=== PATIENT | female | born 1970 | race Caucasian/White ===

== ENCOUNTER 2018-11-08 00:57 | Emergency (ER) | payer OTHER, SELFPAY ==
[2018-11-08 01:00] VITALS: BP 151/97; PULSE 78; RESP 16; TEMP 36.1; O2SAT 100
[2018-11-08] MEDS: Cyclobenzaprine 10 MG TAB PO (01:14)
--- NOTE | 2018-11-08 01:16 | ED.GENADUL_ITS ---
Discharge Plan Disposition Patient Disposition: HOME Condition: Stable Discharge Details Chief Complaint: Nk/Back Pain Clinical Impression: Lumbar back pain Primary Care Provider: Yasmin Guerra ED Provider: Tyler Serrano Home Meds and New Rx's Prescriptions: New cyclobenzaprine 10 mg tablet 10 mg PO TID PRN (Reason: muscle spasm) Qty: 20 RF: 0 No Action albuterol sulfate [ProAir HFA] 8.5 GM HFA aerosol inhaler 2 puff Inhalation Q4H PRN Qty: 1 RF: 2 Discharge Instructions Instructions: Back Pain (ED) Additional Instructions: you can take 1000mg tylenol and 600mg ibuprofen every 6 hours for pain do not drink alcohol or drive if you take the flexeril (cyclobenzaprine) follow up with your primary care provider within 1-2 weeks epsecially if pain continues return to the emergency department for high fevers, difficulty urinating or abdominal pain or weakness Stand Alone Forms: Physical Therapy Referral Medical Decision Making 48 yo female who states she has a history of having back issues but no prior back surgeries comes in with chief complaint of 3 days of mid to lower back 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 She denies any trauma and denies any fevers, worse pain in the morning or unexplained weight loss. She denies drug use or smoking or alcohol use. she localizes the pain throughout the lumbar region without palpable or visible defects. Does have pain with flexion at lumbar spine, no saddle anesthesia or weaknessin the legs with intact distal sensation and pulses. no findings on exam to suggest cauda equina or findings on hx to suggest sea so do not feel emergent mri indicated and given lack of trauma doubt fx and no systemic symptoms to suggest cancer so do not feel xrays or ct indicated. i suspect musclespasm or other musculoskeletal injury to the lower back, will start muscle relaxers and advised f/u with pcp and return precautions given. Differential Diagnosis back spasm, lumbar strain, disc herniation HPI General Mode of arrival: ambulatory . Date/Time Provider Initiated Documentation: 11/08/18 01:02 . Limitations to Documentation: no limitations . Information obtained by: patient . History of Present Illness 48 year old F presents to the emergency department with the chief complaint of back pain, described as moderate, Quality is described as aching, and is localized to the back. Patient started experiencing this day(s) (3) and it has been constant. No relieving factors improve symptom(s), No exacerbating factors reported . Patient notes no other symptoms.. Patient did receive the following treatments prior to arrival, none Related Data Home Medications Medication Instructions Recorded Confirmed albuterol sulfate [Proair Hfa] 2 puff INHALATION Q4H PRN #1 08/10/16 11/08/18 inhaler cyclobenzaprine 10 mg PO TID PRN #20 tab 11/08/18 Previous Rx's Medication Instructions Recorded cyclobenzaprine 10 mg PO TID PRN #20 tab 11/08/18 Allergies Allergy/AdvReac Type Severity Reaction Status Date / Time hydrocodone bitartrate Allergy Unverified 11/08/18 01:03 [From Vicodin] acetaminophen [From Vicodin] AdvReac Unverified 11/08/18 01:03 pigweed Allergy Uncoded 11/08/18 01:03 General Stated Complaint: Nk/Back Pain DOROTEO: 4 Review of Systems Review of Systems All systems reviewed & are unremarkable except as noted in HPI and below Constitutional Denies chills and Denies fever(s) Cardiovascular Denies chest pain and Denies dyspnea Respiratory Denies cough and Denies dyspnea Gastrointestinal Denies abdominal pain, Denies nausea and Denies vomiting Genitourinary Denies dysuria Integumentary/Breasts Denies rash PFSH Family History Father Heart disease Grandmother Diabetes Essential hypertension Heart disease Mother Essential hypertension Hyperlipidemia Social History Smoking/Tobacco Use Status: Never Alcohol Intake: never Substance use type: does not use Do you feel safe at home: Yes Do you feel safe in your relationship?: Yes Exam Const General: no acute distress Orientation: alert HENMT Head: normal to inspection Ears: external ears normal General nose exam: external nose normal Mouth: moist mucous membranes Eyes General: appearance normal, both eyes and all related structures Neck Neck: normal visual inspection Resp Effort & Inspection: normal respiratory effort and able to speak in complete sentences Cardio Rate: regular rate Back/Spine/Pelvis Back: no CVA tenderness Skin General skin exam: no rashes or lesions noted Neuro General: alert and oriented x3 Extrem General: normal to inspection Psych Mental Status: mental status grossly normal Course Vital Signs Temperature 36.1 C L 11/08/18 01:00 Pulse 78 11/08/18 01:00 Respiratory Rate 16 11/08/18 01:00 Blood Pressure 151/97 H 11/08/18 01:00 Pulse Oximetry 100 11/08/18 01:00 Temperature 36.1 C L 11/08/18 01:00 Temperature Source Temporal Artery Scan 11/08/18 01:00 Pulse 78 11/08/18 01:00 Respiratory Rate 16 11/08/18 01:00 Respiratory Effort 11/08/18 01:00 Blood Pressure 151/97 H 11/08/18 01:00 Pulse Oximetry 100 11/08/18 01:00 Oxygen Delivery Method Room Air 11/08/18 01:00 Oxygen Flow Rate 0 11/08/18 01:00 Pain Level 7 11/08/18 01:00
== END 2018-11-08 01:23 | disposition home or self-care (01) ==
LOC: ER 01:23
PROVIDERS: Emergency Provider Emergency Medicine; PCP Nurse Practitioner Family
DX: M54.5 Low back pain (principal)
CPT/HCPCS: 99283

== ENCOUNTER 2019-12-01 10:28 | Outpatient (CLI) | payer OTHER, SELFPAY ==
[2019-12-02 01:42] LABS: COVID-19 RT-PCR UVMMC Result Negative (Negative)
== END 2019-12-01 10:48 ==
PROVIDERS: PCP Nurse Practitioner Family; Visit Provider Nurse Practitioner Family
DX: J34.89 Other specified disorders of nose and nasal sinuses (principal); Z11.59 Encounter for screening for other viral diseases
CPT/HCPCS: U0003

== ENCOUNTER 2019-12-18 09:52 | Outpatient (CLI) | payer OTHER, SELFPAY ==
--- NOTE | 2019-12-18 09:00 | DI.RAD_ITS ---
EXAM: XR SHOULDER RT COMPLETE 2+V CLINICAL HISTORY: right shoulder pain. TECHNIQUE: 2D digital imaging was performed. COMPARISON: No exams were available for comparison FINDINGS: BONES: No acute fracture is present. No bony destructive lesion is seen. JOINTS: No dislocation present. SOFT TISSUE: Normal. IMPRESSION: Unremarkable radiographs of the right shoulder. DATA REPOSITORY: RADIATION DOSE DELIVERED:
--- NOTE | 2019-12-18 09:45 | DI.RAD_ITS ---
EXAM: XR CERVICAL SP FAROOQ TRAUMA 2-3V CLINICAL HISTORY: numbness in arm. TECHNIQUE: 2D digital imaging was performed. COMPARISON: No exams were available for comparison FINDINGS: This is a limited cervical spine series. AP and lateral views were obtained. There is normal alignm ent of the cervical spine. The odontoid appears well maintained. The lateral masses are well aligne d. There is disc space narrowing and endplate osteophytes at C5-C6 and C6-C7. Degenerative changes of the facets are seen on the right at C3-4 and C4-C5. No acute fracture or subluxation is appreciat ed. The prevertebral soft tissues are unremarkable. IMPRESSION: Moderate degenerative changes in the cervical spine. DATA REPOSITORY: RADIATION DOSE DELIVERED:
== END 2019-12-18 10:12 ==
PROVIDERS: PCP Nurse Practitioner Family; Referring Provider Nurse Practitioner Family; Visit Provider Student in an Organized Health Care Education/Training Program
DX: M25.511 Pain in right shoulder (principal); G89.29 Other chronic pain; R20.0 Anesthesia of skin; M50.322 Other cervical disc degeneration at C5-C6 level; M50.323 Other cervical disc degeneration at C6-C7 level; M47.812 Spondylosis without myelopathy or radiculopathy, cervical region
CPT/HCPCS: 72040; 73030

== ENCOUNTER 2020-03-28 04:15 | Outpatient (CLI) | payer OTHER, SELFPAY ==
[2020-03-28 08:04] LABS: HCT 39.2 % (36.0-46.0); HGB 11.9 g/dL (11.2-15.7); MCH 21.1 pg (27.0-33.0); MCHC 30.4 % (32.0-36.0); MCV 69.4 fL (80-95); MPV 11.3 fL (8.0-11.0); RBC 5.65 10^6/uL (3.93-5.22); RDW 15.4 % (11.7-14.6); RDW-SD 37.6 fL; WBC 7.86 10^3/uL (4.4-10.8)
[2020-03-28 08:33] LABS: Platelet Count 253 10^3/uL (130-400)
[2020-03-28 08:56] LABS: Calculated LDL 130 mg/dL (<100); Cholesterol 209 mg/dL (<200); HDL Cholesterol 66 mg/dL (40-60); Triglyceride 68 mg/dL (<150)
[2020-03-29 09:37] LABS: HIV-1/2 Ag & Ab Screen Negative (Negative)
== END 2020-03-28 04:35 ==
PROVIDERS: PCP Nurse Practitioner Family; Visit Provider Nurse Practitioner Family
DX: Z13.220 Encounter for screening for lipoid disorders (principal); Z11.4 Encounter for screening for human immunodeficiency virus [HIV]
CPT/HCPCS: 36415; 80061; 85027; 87389

== ENCOUNTER 2020-04-22 03:29 | Outpatient (CLI) | payer OTHER, SELFPAY ==
[2020-04-23 11:16] LABS: SARS-CoV-2 RNA Not Detected (NotDetected); SARS-CoV-2 RNA Source Nasal/Nares
== END 2020-04-22 03:49 ==
PROVIDERS: PCP Nurse Practitioner Family; Visit Provider Student in an Organized Health Care Education/Training Program
DX: Z11.59 Encounter for screening for other viral diseases (principal); Z01.818 Encounter for other preprocedural examination
CPT/HCPCS: U0003

== ENCOUNTER 2020-04-25 06:15 | Day surgery (SDC) | payer OTHER, SELFPAY ==
[2020-04-25] VITALS (9 sets, daily range): BP systolic 90–122; BP diastolic 65–81; PULSE 60–79; RESP 13–19; TEMP 36–36.6; O2SAT 96–100
[2020-04-25] MEDS: Lactated Ringers 1,000 ML 100 ML IV (07:00)
[2020-04-25] MEDS: Bupivacaine 0.5% Pres-Free 30 ML VIAL (07:20)
[2020-04-25] MEDS: Bupivacaine LIPOSOME/PF 133 MG/10 ML VIAL IJ (07:20)
[2020-04-25] MEDS: ceFAZolin 2 GM/50 ML BAG IVPB (07:34)
[2020-04-25] MEDS: Bupivacaine 0.25% Pres-Free 30 ML VIAL (08:35)
[2020-04-25] MEDS: EPINEPHrine 30 MG/30 ML VIAL ×2 (08:37→08:38)
--- NOTE | 2020-04-25 09:44 | PDOC.DSDIS_ITS ---
Discharge Plan Disposition Patient Disposition: HOME Condition: Stable Discharge Details Reason For Visit: Right shoulder surgery Attending Provider: Jim Brown Primary Care Provider: Yasmin Guerra Home Meds and New Rx's Prescriptions: New aspirin 81 mg tablet,delayed release (DR/EC) 81 mg PO DAILY 14 Days Qty: 14 RF: 0 ibuprofen 800 mg tablet 800 mg PO BID PRN (Reason: pain, moderate) Qty: 60 RF: 0 ondansetron 4 mg tablet,disintegrating 4 mg PO Q6H PRN (Reason: nausea or vomiting) Qty: 5 RF: 0 oxycodone 5 mg tablet 5 - 10 mg PO Q4H PRN (Reason: moderate to severe pain) Qty: 16 RF: 0 Continued multivitamin Tablet 1 tab PO DAILY RF: 0 albuterol sulfate [ProAir HFA] 8.5 GM HFA aerosol inhaler 2 puff Inhalation Q4H PRN Qty: 1 RF: 2 cholecalciferol (vitamin D3) [Vitamin D3] 25 mcg (1,000 unit) Tablet 50 mcg PO DAILY RF: 0 Discharge Instructions Additional Instructions: Surgery: Shoulder arthroscopy with biceps tenodesis, extensive debridement, subacromial decompression, and distal clavicle excision. You should gradually increase range of motion motion and use of your shoulder. Please perform daily stretching exercises. You may use your shoulder for all regular activities. Avoid heavy lifting, reaching overhead, and lifting away from body for approximately 6 to 8 weeks. You may use the sling whenever you are out of the house for a few weeks. You may have to adjust the abduction pillow or remove it for comfort. At home it is best to remove the sling and rest the arm on a pillow at your side or support the operative side with your other hand. You may allow the arm to dangle at your side. A physical therapy prescription will be sent electronically to start in 1 to 2 weeks. Prescriptions: Aspirin 81 mg take 1 daily to prevent a blood clot for 2 weeks Ibuprofen 800 mg take 1 every 12 hours with a meal as needed for moderate pain Oxycodone 5 mg take 1-2 every 4-6 hours as needed for severe pain You may use [id number] Tylenol (acetaminophen) as needed for mild pain. These pain medications may be taken all at once or in different combinations as needed. Ondansetron (Zofran) 4 mg take 1 orally dissolving tablet every 6 hours as needed for nausea or vomiting Also, recommend Colace (docusate) as a stool softener as surgery and pain medicine cause constipation. Dressings: Remove shoulder bandage after 3 days. Leave the sticky Steri-Strips in place until they fall off or remove them after you shower. Cover the incisions with Band-Aids or leave them open to air. The biceps bandage (inside upper arm) is glued on separately. You may leave this one on a few days longer if it is difficult to remove. There is also glue underneath this bandage that can be left in place until it peels off. You may shower after 5 days. Follow-up: 10-[address] Brown (05/08/20 at 1:30 PM) You may take off the leg compression stockings this evening at home. You may also leave them on a few days longer if you have a history of leg swelling or edema. Let us know right away if you develop any redness, drainage, fevers, chest pain, or trouble breathing. Do not drink alcohol or drive for at least 24 hours after anesthesia. Please call the office during business hours with any questions or concerns. Referrals: Jim Brown MD [ [facility] STAFF PHYSICIAN] - Discharge Orders Discharge Orders: Discharge Order (Routine); Ordered 04/25/20 Ordered By: Jim Brown DS: Diagnosis Discharge Diagnosis (1) Impingement syndrome of right shoulder: Status: Acute (2) Bursitis of right shoulder: Status: Acute (3) Arthritis of right acromioclavicular joint: Status: Acute (4) SLAP lesion of right shoulder: Status: Acute (5) Tendinitis of long head of biceps brachii of right shoulder: Status: Acute
--- NOTE | 2020-04-25 10:03 | ROE_ITS ---
Date of service: 04/25/20 Time of Service: 09:44 Operative Note Operative Note DATE OF PROCEDURE: 04/25/20 PRE-OP DIAGNOSIS: Right: 1. SLAP tear 2. LHB tendinopathy 3. Bursitis 4. Impingement 5. ACJ Arthritis POST-OP DIAGNOSIS: same PROCEDURE: Right: 1. Open biceps tenodesis, CPT# 36418. This involved reattaching the long head of the biceps tendon to the proximal humerus in the sub-pectoral area of the bicipital groove at the correct tension. 2. Extensive debridement, CPT# 03021. This involved using arthroscopic hand instruments, power instruments, and radiofrequency instruments to release to release the long head of the biceps tendon and debride areas of labral tearing of the anterior superior labrum, synovitis anteriorly, and a cartilage lesion in the central glenoid working anteriorly, superiorly and posteriorly. 3. Subacromial decompression with partial acromioplasty, CPT# 48540. This involved using arthroscopic power instruments and a radiofrequency wand to complete a bursectomy and remove bone spurs on the undersurface of the acromion. 4. Arthroscopic distal clavicle excision, CPT# 37545. This involved arthroscopically exposing the underside of the acromioclavicular joint, smoothing out bone spurs, and using a jessica to remove approximately 5 mm of the distal clavicle so there was no bone left engaging the acromion. The assistant front office manager was medically required in order to help assist in techniques above, which require positioning the arm, holding the arthroscope, and manipulating multiple instruments and sutures at the same time. This cannot be done without the help of an experienced assistant front office manager. SURGEON: Jim Brown MANUFACTURING QUALITY TECHNICIAN: Susan Fierro ANESTHESIA: GETA, regional and local ESTIMATED BLOOD LOSS: 5 PATHOLOGY: none sent COMPLICATIONS: None Patient was transported to: PACU Patient's condition: stable Implants: Arthrex: Unicortical Proximal Biceps Tenodesis Button Indications: The patient was diagnosed with the above conditions and appropriately indicated for surgical intervention. Please see complete medical record for details. Findings: Exam under anesthesia: Full symmetrical range of motion, no instability Glenohumeral joint: Mild synovitis anteriorly and moderate superiorly. Moderate long head of the biceps tendon injection. Type II SLAP tear. Anterior labral fraying. Small, limited 2 x 3 mm central glenoid nearly full-thickness cartilage defect with adjacent cartilage fraying but no unstable cartilage flaps. Intact subscapularis and superior articular rotator cuff tendons. Subacromial space: Moderate bursitis. Generalized superficial bursal rotator cuff fraying without any structural rotator cuff tear. Mild subacromial bone spur. Moderate impinging distal clavicle acromion centrally and superiorly. Procedure Description: In the operating room, general anesthesia was induced. Bilateral shoulders were examined. The patient was positioned in the beachchair position. All bony prominences were well-padded. Preoperative antibiotics were administered. The shoulder was prepped and draped in the usual sterile fashion. The correct patient, procedure, and side of the procedure were all verified prior to incision. Starting through the posterior portal a standard complete diagnostic arthroscopy was performed of the glenohumeral joint including inspection of the long head of the biceps, anterior and superior labrum, subscapularis tendon, supraspinatus and infraspinatus tendons, and axillary recess. The glenoid and humeral head cartilage as well as the posterior labrum were inspected from an anterior viewing portal. Significant findings and interventions noted above. The biceps tendon was released from the superior labrum using arthroscopic scissors. Starting through the posterior portal, the arthroscope was directed into the subacromial space. A lateral 50 yard line lateral portal was created. A combination of power instruments and a radiofrequency ablator were used to debride bursitis anteriorly, posteriorly, and laterally as well as expose and smooth bone spurring on the undersurface of the acromion. The coracoacromial ligament was preserved. The bursectomy was completed viewing laterally and w orking from posteriorly and the rotator cuff was thoroughly inspected with findings noted above. The anterior portal was redirected towards the undersurface of the AC joint. A shaver and electrocautery device were used to clear soft tissue from the undersurface of the AC joint. A jessica was then inserted and used to remove the distalmost 5 mm of the distal clavicle. Care was taken to alternate between working through the anterior portal and viewing through the anterior portal to ensure that proper amount of bone was removed and there was no engaging bone left behind especially superiorly. 10 cc of 0.25% bupivacaine with epinephrine was infiltrated about a 2 to 3 cm longitudinal incision at the inferior margin of the pectoralis major localized over the long head of the biceps tendon. Blunt and sharp dissection were used to expose the tendon in the bicipital groove. The tendon was brought out of the wound and kept off the skin on top of a blue towel. The correct location for sub-pectoral fixation was localized, prepped with a rasp, and then drilled with a 3.2 mm drill pin in a unicortical fashion. Using a fiber loop suture the tendon was prepped from the musculotendinous junction a few centimeters proximal. The excess tendon was amputated. The free suture ends were then passed through the unicortical button implant. The drill pin was removed and the implant was placed into the humeral intramedullary canal. The button was flipped and the sutures were tensioned bringing the tendon down to bone. Tension and fixation were then tested and found to be appropriate. The free ends were brought on either side of the tendon and the sutures were were tied compressing tendon to bone. The wound was copiously irrigated with normal saline. Subcutaneous tissue was closed using 3-0 Monocryl in a buried interrupted fashion. Skin was closed using 3-0 Monocryl in a buried subcuticular running fashion. Skin glue was applied over the incision. Mastisol was applied about the incision. The incision was covered with Telfa, gauze, and covered with a Tegaderm dressing. The shoulder was drained of arthroscopic fluid. All portal sites were copiously irrigated. These incisions were closed using 3-0 Monocryl in a buried fashion, covered with Mastisol, Steri-Strips, Xeroform, dry gauze, and ABDs. The dressings were covered and secured with Medipore tape. The operative extremity was placed into a sling for immobilization. The patient awoke from anesthesia without complication and was transferred to the recovery room in a stable condition.
== END 2020-04-25 14:47 | disposition home or self-care (01) ==
PROVIDERS: PCP Nurse Practitioner Family; Visit Provider Student in an Organized Health Care Education/Training Program
PROC: (CPT 29805; principal; 2020-04-25 07:30)
PROC: (CPT 23430; 2020-04-25 07:30)
DX: M75.41 Impingement syndrome of right shoulder (principal); M75.51 Bursitis of right shoulder; M19.011 Primary osteoarthritis, right shoulder; S43.431A Superior glenoid labrum lesion of right shoulder, initial encounter; M75.21 Bicipital tendinitis, right shoulder; X58.XXXA Exposure to other specified factors, initial encounter; G89.18 Other acute postprocedural pain
CPT/HCPCS: 23430; 29823; 29826; 29824; 76942; J0690; J1100; J1885; J2250; J2405; J2704

== ENCOUNTER 2020-08-13 03:11 | Outpatient (CLI) | payer OTHER, SELFPAY ==
[2020-08-14 14:34] LABS: COVID-19 RT-PCR UVMMC Result Negative (Negative)
== END 2020-08-13 03:12 | disposition home or self-care (01) ==
PROVIDERS: PCP Nurse Practitioner Family; Visit Provider Nurse Practitioner Family
DX: R05 Cough (principal); J02.9 Acute pharyngitis, unspecified; R51.9 Headache, unspecified; Z20.828 Contact with and (suspected) exposure to other viral communicable diseases
CPT/HCPCS: U0003

== ENCOUNTER 2021-03-17 15:32 | Outpatient (REF) | payer SELFPAY ==
[2021-03-19 15:37] LABS: COVID-19 RT-PCR UVMMC Result Negative (Negative)
== END 2021-03-17 15:33 | disposition home or self-care (01) ==
LOC: LBN 15:32
PROVIDERS: PCP Nurse Practitioner Family; Visit Provider Physician Assistant
DX: Z20.822 Contact with and (suspected) exposure to COVID-19 (principal)
CPT/HCPCS: U0003

== ENCOUNTER 2022-08-03 10:54 | Emergency (ER) | payer MEDICAID, SELFPAY ==
[2022-08-03] VITALS (25 sets, daily range): BP systolic 128–165; BP diastolic 82–103; PULSE 69–86; RESP 12–25; TEMP 36.9; O2SAT 98–100
--- NOTE | 2022-08-03 10:45 | RT.EKG_ITS ---
APPROVED REPORT Exam: Resting ECG Reason for Exam: right sided weakness Patient Location: E HR:75 bpm ECG Measurements Heart Rate 75 AXIS TX 153 P -89 QRSd 90 QRS -6 QT 423 T 26 QTc 474 Conclusion Ectopic atrial rhythm...abnormal P axis, normal rate ectopic atrial rhythm at a rate of 75. Left axis deviation no signs of LVH based on voltage criteri a. No prior for comparison. No acute ST segment abnormalities
--- NOTE | 2022-08-03 10:45 | DI.CT_ITS ---
Exam(s) CT HEAD - STROKE PROTOCOL EXAM: CT HEAD - STROKE PROTOCOL CLINICAL HISTORY: right facial droop, mendez. TECHNIQUE: Imaging Protocol: Axial computed tomography images with coronal and sagittal reformatted images were created and reviewed COMPARISON: No exams were available for comparison FINDINGS: Ventricles and Extra axial spaces: Normal in size and morphology for the patient's age. Hemorrhage: None. Cerebral parenchyma: No evidence of an acute territorial infarct. Midline shift: None. Brainstem/Cerebellum: Normal. Calvarium: Normal. Visualized Paranasal sinuses/Mastoids: Clear. Soft Tissues: Unremarkable. IMPRESSION: 1. No acute intracranial process. 2. Findings were discussed with the emergency department at 11:23 a.m. on 08/03/2022. RADIATION DOSE DELIVERED: 767.93mGy.cm Total DLP DATA REPOSITORY: All CT scans at this facility are submitted to the National Radiology Data Registry (NRDR) Dose Index Registry (DIR) with the [employer] ([employer]). RADIATION OPTIMIZATION: All CT scans at this facility use at least one of these dose optimization te chniques: automated exposure control; mA and/or kV adjustment per patient size (includes targeted exa ms where dose is matched to clinical indication); or iterative reconstruction.
--- NOTE | 2022-08-03 11:00 | DI.RAD_ITS ---
Exam(s) XR PORTABLE CHEST AP EXAM: XR PORTABLE CHEST AP CLINICAL HISTORY: right sided weakness TECHNIQUE: 2D digital imaging was performed of the chest. One image was obtained. An AP view was ob tained. COMPARISON: No exams were available for comparison FINDINGS: MEDIASTINUM: Normal. HEART: Normal. PULMONARY VASCULATURE: Normal. LUNGS: Clear. PLEURAL SPACE: No pleural effusion or pneumothorax. BONE:Within normal limits for the patient's age. OTHER FINDINGS:Normal. IMPRESSION: No acute pulmonary findings. DATA REPOSITORY: RADIATION DOSE DELIVERED:
[2022-08-03 11:21] LABS: Abs Immature Grans 0.04 10^3/uL (0.0-0.06); Absolute Basophil Count 0.03 10^3/uL (0.0-0.2); Absolute Eosinophil Count 0.08 10^3/uL (0.0-0.7); Absolute Monocyte Count 0.54 10^3/uL (0.1-0.8); Absolute Neutrophil Count 6.42 10^3/uL (1.2-6.7); Basophils % 0.3; Eosinophils % 0.9; HCT 39.7 % (36.0-46.0); HGB 12.5 g/dL (11.2-15.7); Immature Grans % 0.4; Lymphocytes % 24.4; MCH 21.2 pg (27.0-33.0); MCHC 31.5 % (32.0-36.0); MCV 67 fL (80-95); Monocytes % 5.7; Neutrophils % 68.3; Platelet Count 272 10^3/uL (130-400); RBC 5.89 10^6/uL (3.93-5.22); RDW 15.1 % (11.7-14.6); WBC 9.41 10^3/uL (4.4-10.8)
[2022-08-03] MEDS: Normal Saline 1,000 ML 1000 ML IV (11:29)
[2022-08-03] MEDS: Prochlorperazine 10 MG/2 ML VIAL IVP (11:29)
[2022-08-03] MEDS: LORazepam 2 MG/ML VIAL 1 MG IVP (11:29)
[2022-08-03 11:35] LABS: Magnesium 1.8 mg/dL (1.8-2.4)
[2022-08-03 11:36] LABS: Diff Comment Diff Reviewed; Poikilocytes 1+
[2022-08-03 11:41] LABS: ALT 27 U/L (14-59); AST 19 U/L (15-37); Albumin 4.3 g/dL (3.4-5.0); Alkaline Phosphatase 108 U/L (46-116); Anion Gap 14.1 mmol/L (3-11); BUN 16 mg/dL (7-18); Bilirubin, Total 0.4 mg/dL (0.2-1.0); CO2 22.9 mmol/L (21.0-32.0); CREATININE 0.9 mg/dL (0.55-1.02); Calcium 9.4 mg/dL (8.5-10.1); Chloride 103 mmol/L (98-107); Glucose 125 mg/dL (74-106); Potassium 3.3 mmol/L (3.5-5.1); Sodium 140 mmol/L (136-145); Total Protein 8.1 g/dL (6.4-8.2)
[2022-08-03 11:42] LABS: Troponin I < 50 ng/L (<or=60)
[2022-08-03 11:48] LABS: ETHANOL BLOOD < 3.0 mg/dL (<10); TSH (W/Ref FT4) 1.13 uIU/mL (0.36-3.74)
[2022-08-03] MEDS: ACETAMINOPHEN 1,000 MG/100 ML BTL 400 MG IVPB (12:33)
[2022-08-03] MEDS: Dexamethasone 10 MG/ML VIAL IVP (12:34)
[2022-08-03] MEDS: MAGNESIUM SULFATE 1 GM/100 ML BAG IVPB (13:12)
--- NOTE | 2022-08-03 13:24 | ED.GENADUL_ITS ---
Discharge Plan Disposition Patient Disposition: Home Discharge Details Clinical Impression: Headache Primary Care Provider: Yasmin Guerra ED Provider: Lacy Melgra Home Meds and New Rx's Prescriptions: New prochlorperazine maleate [Compazine] 10 mg tablet 10 mg PO Q8H PRNQty: 10 0RF lorazepam [Ativan] 1 mg tablet 1 mg PO DAILY PRNQty: 6 0RF Continued mmrqdeoqun-xtiocgmvkcbem-tnfl [Fioricet] 50-300-40 mg capsule 1 cap PO TID PRN (Reason: pain) Qty: 10 0RF ondansetron HCl [Zofran] 4 mg tablet 4 mg PO Q8H PRN (Reason: nausea and vomiting) Qty: 10 0RF albuterol sulfate [ProAir HFA] 90 mcg/actuation HFA aerosol inhaler 2 puff Inhalation Q4H PRN Qty: 1 3RF ibuprofen 800 mg tablet 800 mg PO BID PRN (Reason: pain, moderate) Qty: 60 0RF Discharge Instructions Instructions: General Headache (ED) Additional Instructions: Please take Ativan as needed for anxiety Compazine as needed for nausea and headache P.o. as needed for discomfort Increase your fluid hydration, you are dehydrated on today's visit Please follow-up with your doctor tomorrow Rest, No that Ativan is addictive and you should not operate your vehicle for 8 hours after taking this medication Stand Alone Forms: Work Release Referrals: Yasmin Guerra NP [Primary Care Provider] - 1 day Discharge Data Discharge Date/Time-TO BE ENTERED AT DEPARTURE: 08/03/22 13:56 Medical Decision Making 52-year-old female presents with acute onset of severe headache with generalized weakness and difficulty with speech Initial concern for possible subarachnoid hemorrhage or stroke CT head does not show evidence of acute abnormality per radiology interpretation and my review Patient given Ativan, Compazine, fluids and headache has resolved completely Gap of 14, given 2 L of LR Potassium 3.3, encouraged to take a multivitamin at home Negative , negative alcohol, negative tox screen, urinalysis without acute abnormality Her exam is nonfocal in nature and as her headache started abruptly approximately half an hour prior to assessment CT scan is an excellent screening tool for subarachnoid hemorrhage and there is no clinical evidence of this and her headache has resolved, I think this is reassuring and do not feels the patient needs further investigation, I do suspect there is a significant anxiety component to this presentation and that patient will need outpatient follow-up closely She is feeling significantly improved and ambulatory with steady gait, discharged home in the care of her partner, denies any suicidal ideation and feels as though she has appropriate resources at home She is given several tabs of Ativan for discharge Her vitals are now stable and she will be discharged home with several tablets of Ativan, risk of addiction reviewed Close outpatient follow-up recommended HPI General Date/Time Provider Initiated Documentation: 08/03/22 10:55 . HPI Narrative: This 52-year-old female presents with terrible headache with acute onset just prior to arrival. States she is having trouble ambulating, been under significant stressors. Has a history of headaches but nothing like this in the past. States she is having difficulty explaining her symptoms. Denies any head trauma or new medications. Partner arrives and states that patient has a history of headaches Related Data Home Medications Medication Instructions Recorded Confirmed ibuprofen 800 mg tablet 800 mg PO BID PRN pain, moderate 04/25/20 08/03/22 #60 tabs zpjdjpgcjr-mobhzyascqlne-ieemejfx 1 cap PO TID PRN pain #10 caps 03/17/21 08/03/22 50 mg-300 mg-40 mg capsule (Fioricet) ondansetron HCl 4 mg tablet 4 mg PO Q8H PRN nausea and 03/17/21 08/03/22 (Zofran) vomiting #10 tabs albuterol sulfate 90 mcg/actuation 2 puff inhalation Q4H PRN ##1 06/24/21 08/03/22 aerosol inhaler (ProAir HFA) lorazepam 1 mg tablet (Ativan) 1 mg PO DAILY PRN #6 tabs 08/03/22 prochlorperazine maleate 10 mg 10 mg PO Q8H PRN #10 tabs 08/03/22 tablet (Compazine) Previous Rx's Medication Instructions Recorded ibuprofen 800 mg tablet 800 mg PO BID PRN pain, moderate 04/25/20 #60 tabs tmfszpntmf-wvzklfptgmwzz-hrwggywu 1 cap PO TID PRN pain #10 caps 03/17/21 50 mg-300 mg-40 mg capsule (Fioricet) ondansetron HCl 4 mg tablet 4 mg PO Q8H PRN nausea and 03/17/21 (Zofran) vomiting #10 tabs albuterol sulfate 90 mcg/actuation 2 puff inhalation Q4H PRN ##1 06/24/21 aerosol inhaler (ProAir HFA) lorazepam 1 mg tablet (Ativan) 1 mg PO DAILY PRN #6 tabs 08/03/22 prochlorperazine maleate 10 mg 10 mg PO Q8H PRN #10 tabs 08/03/22 tablet (Compazine) Allergies Allergy/AdvReac Type Severity Reaction Status Date / Time hydrocodone bitartrate Allergy Verified 08/03/22 11:30 [From Vicodin] acetaminophen [From Vicodin] AdvReac Verified 08/03/22 11:30 pigweed Allergy Uncoded 08/03/22 11:30 General Stated Complaint: Headache DOROTEO: 2 PFSH All Active Problems (Updated 08/03/22 @ 13:30 by ALISIA Traore) Headache (Acute) Wheeze (Acute) Cough (Acute) Hyperlipidemia, unspecified (Chronic) 03/2020 labs: 10-year ASCVD risk = ~0.9% Arthritis of right acromioclavicular joint (Acute) Impingement syndrome of right shoulder (Acute) Bursitis of right shoulder (Acute) SLAP lesion of right shoulder (Acute) Tendinitis of long head of biceps brachii of right shoulder (Acute) Osteoarthritis (Chronic) Hips, spine Vitamin D deficiency (Chronic) Asthma (Chronic) Iron deficiency (Acute 08/07/14) Environmental allergies (Acute 09/27/14) [place] Pollens, pigweed Deviated nasal septum (Acute 12/28/14) Medical History Asthma Chronic pansinusitis (12/28/14) Hyperlipidemia, unspecified 03/2020 labs: 10-year ASCVD risk = ~0.9% Menstrual migraine improved after hysterectomy, Osteoarthritis Hips, spine Perimenopausal vasomotor symptoms began 2yrs after hysterectomy. Vitamin D deficiency Surgical History History of shoulder surgery (~04/25/20) Hysterectomy, Laproscopic (~2004) Benign indication. supracervical; ovaries remain Family History Father Heart disease [place] age 45 Stroke Grandmother Diabetes Heart disease Hypertension Mother Hyperlipidemia Hypertension Asthma Heart disease Social History Smoking/Tobacco Use Status: Former Tobacco Use Quit Date: 06/07/04 Tobacco: How many years used: 10 Second Hand Exposure: No Smoking risk assessment performed?: Yes Alcohol Intake: current Alcohol Intake frequency: holidays/special occasions only Drug use: Never Substance use type: does not use Caregiver/Support person: No Household members: significant other and none Housing: house Number of Children: 2 Communication Needs: None Education Level: college Details: some Do you need help understanding health information?: Never current occupation: Office work Pets and animals: Yes Pets and animals: cat(s), dog(s) and bird(s) Sexually active: Yes Do you think of yourself as: straight/heterosexual Current gender identity: female What is your relationship status?: living with partner How often do you talk on the phone with friends or family?: three or more times per week How often do you get together with friends or relatives?: never How often do you attend latter-day or restorationist services?: decline to answer Do you belong to any clubs or organized social groups?: no Panel score (0-1 are the most socially isolated patients): 2 Duration: < 15 minutes/day Frequency: 1-2 times per week Amy/Hoahaoism: [employer]ybeterian Special amy needs: No Seatbelt use: sometimes Helmet use: No Drive intox or ride w/intox lifter/driver: No Water heater temp set <120 deg: Yes Working smoke detector in home: Yes Fire extinguisher in home: Yes Carbon monox detector in home: Yes Firearms in home: Yes Firearms unloaded and locked: Yes Do you feel safe at home: Yes Do you feel safe in your relationship?: Yes Female Reproductive History Menstrual Menopause type: surgical Exam Const General: in distress and anxious Nutritional Appearance: average body habitus Orientation: alert Eyes Sclera: sclerae normal Cardio Rate: regular rate Rhythm: regular rhythm GI Inspection: normal to inspection Skin General skin exam: no rashes or lesions noted Neuro General: patient alert Cranial Nerves: tongue midline Cognition: normal cognition Coordination: jyuepr-nb-uvkx test normal Other: No pronator drift Psych Appearance: well kempt Speech and Movement: agitated Mood: labile mood Affect: labile affect Course Vital Signs Vital signs: Vital Signs Pulse 75 08/03/22 10:59 Blood Pressure 165/103 H 08/03/22 10:59 Temperature 36.9 C 08/03/22 11:26 Temperature Source Oral 08/03/22 11:26 Pulse 79 08/03/22 12:54 Pulse 80 08/03/22 13:00 Respiratory Rate 17 08/03/22 13:00 Respiratory Effort Normal, Non-Labored 08/03/22 13:02 Blood Pressure 132/86 08/03/22 12:54 Blood Pressure Mean 98 08/03/22 12:54 Blood Pressure Position Sitting 08/03/22 11:26 Pulse Oximetry 100 08/03/22 13:00 Oxygen Delivery Method Room Air 08/03/22 11:26 Oxygen Flow Rate 0 08/03/22 11:26 Pain Level 10 08/03/22 12:23 Lab/Test Results Lab/Test Results: Laboratory Tests Range/Units 08/03/22 08/03/22 08/03/22 11:15 11:15 11:15 WBC (4.4-10.8) 10^3/uL 9.41 RBC (3.93-5.22) 10^6/uL 5.89 H Hgb (11.2-15.7) g/dL 12.5 Hct (36.0-46.0) % 39.7 MCV (80-95) fL 67 L MCH (27.0-33.0) pg 21.2 L MCHC (32.0-36.0) % 31.5 L RDW (11.7-14.6) % 15.1 H Plt Count (130-400) 10^3/uL 272 MPV (8.0-11.0) fL Immature Gran % 0.4 Neutrophils % 68.3 Lymphocytes % 24.4 Monocytes % 5.7 Eosinophils % 0.9 Basophils % 0.3 Nucleated RBC % (0.0-0.3) % 0.0 Absolute Neutrophils (1.2-6.7) 10^3/uL 6.42 Absolute Lymphocytes (1.2-3.4) 10^3/uL 2.30 Absolute Monocytes (0.1-0.8) 10^3/uL 0.54 Absolute Eosinophils (0.0-0.7) 10^3/uL 0.08 Absolute Basophils (0.0-0.2) 10^3/uL 0.03 RBC Morphology See Below Poikilocytosis 1+ Sodium (136-145) mmol/L 140 Potassium (3.5-5.1) mmol/L 3.3 L Chloride (98-107) mmol/L 103 Carbon Dioxide (21.0-32.0) mmol/L 22.9 Anion Gap (3-11) mmol/L 14.1 H BUN (7-18) mg/dL 16 Creatinine (0.55-1.02) mg/dL 0.9 Est GFR (CKD-EPI 2020) (mL/min/1.73m2) 77.40 Glucose (74-106) mg/dL 125 H Calcium (8.5-10.1) mg/dL 9.4 Magnesium (1.8-2.4) mg/dL Total Bilirubin (0.2-1.0) mg/dL 0.4 AST (15-37) U/L 19 ALT (14-59) U/L 27 Alkaline Phosphatase (46-116) U/L 108 Troponin I (<or=60) ng/L < 50 Total Protein (6.4-8.2) g/dL 8.1 Albumin (3.4-5.0) g/dL 4.3 TSH (0.36-3.74) uIU/mL 1.13 Ethyl Alcohol (<10) mg/dL < 3.0 Range/Units 08/03/22 11:15 WBC (4.4-10.8) 10^3/uL RBC (3.93-5.22) 10^6/uL Hgb (11.2-15.7) g/dL Hct (36.0-46.0) % MCV (80-95) fL MCH (27.0-33.0) pg MCHC (32.0-36.0) % RDW (11.7-14.6) % Plt Count (130-400) 10^3/uL MPV (8.0-11.0) fL Immature Gran % Neutrophils % Lymphocytes % Monocytes % Eosinophils % Basophils % Nucleated RBC % (0.0-0.3) % Absolute Neutrophils (1.2-6.7) 10^3/uL Absolute Lymphocytes (1.2-3.4) 10^3/uL Absolute Monocytes (0.1-0.8) 10^3/uL Absolute Eosinophils (0.0-0.7) 10^3/uL Absolute Basophils (0.0-0.2) 10^3/uL RBC Morphology Poikilocytosis Sodium (136-145) mmol/L Potassium (3.5-5.1) mmol/L Chloride (98-107) mmol/L Carbon Dioxide (21.0-32.0) mmol/L Anion Gap (3-11) mmol/L BUN (7-18) mg/dL Creatinine (0.55-1.02) mg/dL Est GFR (CKD-EPI 2020) (mL/min/1.73m2) Glucose (74-106) mg/dL Calcium (8.5-10.1) mg/dL Magnesium (1.8-2.4) mg/dL 1.8 Total Bilirubin (0.2-1.0) mg/dL AST (15-37) U/L ALT (14-59) U/L Alkaline Phosphatase (46-116) U/L Troponin I (<or=60) ng/L Total Protein (6.4-8.2) g/dL Albumin (3.4-5.0) g/dL TSH (0.36-3.74) uIU/mL Ethyl Alcohol (<10) mg/dL
[2022-08-03 13:31] LABS: Bilirubin Negative (Negative); Blood Negative (Negative); Clarity Clear (Clear); Glucose Negative (Negative); Ketones Negative (Negative); Leukocyte Esterase Negative (Negative); Nitrite Negative (Negative); Urobilinogen 0.2 mg/dL (Up to 0.2)
[2022-08-03 13:54] LABS: *AMPHETAMINES SCREEN URINE Negative (Negative); *BARBITURATES SCREEN URINE Negative (Negative); *BENZODIAZEPINES SCREEN URINE Negative (Negative); Cannabinoids THC Negative (Negative); Cocaine Screen,Urine Negative (Negative); METHADONE URINE SCREEN Negative (Negative); OPIATES URINE SCREEN Negative (Negative)
[2022-08-03 13:55] LABS: Tricyclic Antidepressants Negative (Negative)
== END 2022-08-03 13:56 | disposition home or self-care (01) ==
PROVIDERS: Emergency Provider Physician Assistant; PCP Nurse Practitioner Family
DX: R51.9 Headache, unspecified (principal); F41.9 Anxiety disorder, unspecified; R11.0 Nausea; R45.1 Restlessness and agitation; R53.1 Weakness
CPT/HCPCS: 80053; 80307; 81025; 93005; 96361; 96365; 96375; 99284; 70450; 71045; 80320; 81003; 83735; 84443; 84484; 85025; 93010; J0131; J0780; J1100; J2060; J3475

== ENCOUNTER 2022-08-06 12:02 | Outpatient (REF) | payer SELFPAY ==
[2022-08-06 17:13] LABS: COVID-19 PCR Negative (Negative); Influenza A PCR Negative (Negative); Influenza B PCR Negative (Negative); RSV PCR Negative (Negative)
[2022-08-06 17:14] LABS: Source Nasopharynx
== END 2022-08-06 12:03 | disposition home or self-care (01) ==
LOC: LBN 12:02
PROVIDERS: PCP Nurse Practitioner Family; Referring Provider Nurse Practitioner Family; Visit Provider Nurse Practitioner Family
DX: R05.8 Other specified cough (principal); R51.9 Headache, unspecified; Z20.822 Contact with and (suspected) exposure to COVID-19
CPT/HCPCS: 87637

== ENCOUNTER 2022-09-23 01:09 | Outpatient (CLI) | payer MEDICAID, SELFPAY ==
--- NOTE | 2022-09-23 14:50 | DI.US_ITS ---
APPROVED REPORT EXAM: Comprehensive 2D, Doppler, and color-flow Echocardiogram Patient Location: Out-Patient Hide Spreader: Ernie Henry RDMS, RVT Indications: eval for structural heart disease, chest pain, left axis deviation Other Information Study Quality: Good Conclusion Normal left ventricular wall thickness and chamber size. Estimated ejection fraction is 60 to 65%. Wall motion is normal Normal right ventricular size and systolic function Both atria are normal in size There is no structural or hemodynamically significant valvular disease Wall motion Left Ventricle The left ventricle is normal size. The left ventricular systolic function is normal. The left ventric ular ejection fraction is within the normal range. There is normal left ventricular wall thickness. T here is normal LV segmental wall motion. There is no ventricular septal defect visualized. LVEF is 60 -65%. Right Ventricle The right ventricle is normal size. The right ventricular systolic function is normal. The RVSP is 18 .6 mmHg. Atria The left atrium size is normal. The right atrium size is normal. The interatrial septum is intact wit h no evidence for an atrial septal defect. Aortic Valve The aortic valve is normal in structure. Aortic valve is trileaflet. There is no aortic valvular sten osis. No aortic regurgitation is present. Mitral Valve The mitral valve is normal in structure. No evidence of mitral valve stenosis. Trace mitral regurgita tion. Tricuspid Valve The tricuspid valve is normal in structure. There is no tricuspid valve stenosis. Trace to mild tricu spid regurgitation. Pulmonic Valve The pulmonary valve is normal in structure. There is no pulmonic valvular stenosis. Trace pulmonic re gurgitation. Great Vessels The aortic root is normal in size. The ascending aorta is normal in size. Aortic arch is normal in ca liber. IVC is normal in size and collapses >50% with inspiration. Pericardium There is no pericardial effusion. 2D Dimensions IVSD d PLAX 0.54 cm F: 0.6-1.0 LV Vol A2C d MOD 94.2 mL LVPW d PLAX 0.57 cm F: 0.6 - 1.0 LV Vol A4C d MOD 83.3 mL LVID d PLAX 4.63 cm F: 3.8 - 5.2 LA vol/ BSA A4C s A-L 22.9 mL/m2 LVDs 3.10 cm F: 2.2 - 3.5 LA Area A4C s MOD 15.78 cm2 Ao Root d 2.82 cm F: 2.7 - 3.3 LV EF A4C MOD 61.3 % Ao Asc Diam d 2.87 cm F: 2.3 - 3.1 LV EF A2C MOD 60.1 % LV EF Teichholz 61.3 % LV EF Biplane MOD 60.2 % LVEF (Aranda's) 60.16 % F: 54 - 74 SV 53.50 mL LV Volume 68.91 mL F: 46 - 106 SV Index 29.41 mL/m2 LV Volume Index 37.86 mL/m2 F: 29 - 61 LV Vol Biplane MOD 88.9 mL FS 32.80 % M-Mode TAPSE 2.09 cm (M/F) >1.7 LV Diastology MV E' medial 0.101 (>0.07 m/s) E/A Ratio 1.1 LV E/e MED 7.90 (<14) MV E Vmax 0.80 (0.4-1.3 m/s) MV E' lateral 0.128 (>0.1 m/s) MV A Vmax 0.70 (0.4-1.3 m/s) LV E/e LAT 6.25 (<14) MV E/A Ratio 1.14 MV E/E' medial 7.92 MV E/E' lateral 6.26 Aortic Valve LVOT Area 3.41 cm2 AoV Area Vmax 2.82 cm2 LVOT Vmax 0.88 m/s AoV Area/ BSA (Vmax) 1.55 cm2/m2 LVOT Mean Marc. 0.68 m/s LISA Mean Marc. 2.69 cm2 LVOT Peak Grad 3.1 mmHg LISA Mean Marc. Index 1.48 cm2/m2 LVOT Mean Grad 2.0 mmHg LVOT VTI 0.187 m LVOT Diam s 2.05 cm AoV Vmax 1.07 m/s Velocity Ratio 0.82 AoV Mean Marc. 0.87 m/s AoV Peak Grad 4.5 mmHg LVOT SV 63.74 mL AoV Mean Grad 3.2 mmHg AoV VTI 0.266 m AoV Area VTI 2.39 cm2 AoV Area/ BSA (VTI) 1.32 cm/m2 Mitral Valve MV DT 173 (160-240 msec) MV PHT 50 msec MV Area PHT 4.40 cm2 MV VTI 0.287 m MV Area VTI 2.22 (4.0-6.0 cm2) Pulmonary Valve PV Vmax 1.01 (0.5-1.5 m/s) RVOT Peak Gr. 0.90 mmHg PV Peak Grad 4.1 mmHg RVOT Mean Gr. 0.60 mmHg PV Mean Grad 2.6 mmHg RVOT VTI 0.145 m PV VTI 0.232 m RVOT Vmax 0.47 m/s Tricuspid Valve TR Peak Grad 15.6 mmHg TR Vmax 1.98 m/s RA Pressure 3.00 mmHg RVSP (TR) 18.6 mmHg
== END 2022-09-23 01:29 ==
PROVIDERS: PCP Nurse Practitioner Family; Visit Provider Nurse Practitioner Family
DX: R07.89 Other chest pain (principal); R94.31 Abnormal electrocardiogram [ECG] [EKG]
CPT/HCPCS: 93306

== ENCOUNTER 2022-09-24 00:55 | Outpatient (CLI) | payer MEDICAID, SELFPAY ==
--- NOTE | 2022-09-24 15:00 | ETT_ITS ---
APPROVED REPORT Exam: Exercise Treadmill Patient Location: Out-Patient Room/Bed: Stress Nurse: Italia Mcclure RN Ordering Provider:CALU BABB, Contact Number: [phone] BMI: 25.82 Baseline Rhythm: Sinus Rhythm Indications: Chest pain Medical History Medical History: HLD, arthritis, osteoarthritis, vitamin D deficiency, asthma, iron deficiency Cardiac Medications: albuterol sulfate Allergies: Hydrocodone, acetaminophen, pigweed Cardiac Risk Factors: Family hx, HTN, HLD, previous smoker, asthma Previous Cardiac Procedures: None Pretest Chest Pain Characteristics: None Exercise History: Sedentary Physical Disabilities: None Lung Sounds: Clear to auscultation Heart Sounds: Regular Stress Test Details Test: Exercise stress testing was performed using a Devan protocol. Rest Stress HR Resting HR Supine: 65 bpm Max Heart Rate (APMHR): 169 bpm Resting HR Standin bpm Target HR (85% APMHR): 144 bpm Max HR Achieved: 179 bpm % of APMHR: 106 Recovery HR: 92 bpm HR response to stress: Normal HR response to stress BP Resting BP Supine: 148/98 mmHg Resting BP Standin/95 mmHg Max BP: 168/98 mmHg Recovery BP: 144/90 mmHg BP response to stress: Normal blood pressure response to stress. ECG Resting ECG: Sinus Rhythm Ectopy: None Stress ECG: Sinus Tachycardia ST Change: No significant ST segment changes noted Arrhythmia: Rare PVC Recovery ECG: Sinus Rhythm Recovery ST Change: No significant ST segment changes noted Recovery Arrhythmia: None Clinical Reason for Termination: Target HR Achieved, Dyspnea, Fatigue Stress Symptoms: Mod dyspnea Exercise duration: 7 min00 sec Highest Stage Reached: Stage 3: 3.4 mph at 14% grade. Exercise capacity: 8.58 METs Angina Score: None Perry Treadmill Score: 7 Rate Pressure Product: [id number] Stress ECG Conclusion 1. Resting electrocardiogram was within normal limits 2. Patient exercised on the Devan protocol and completed a workload of 8.58 METS 3. Normal heart rate and blood pressure response to exercise. Patient achieved greater than 100% of predicted heart rate for age 4. There was no electrocardiographic evidence of myocardial ischemia Perry Treadmill Score is 7 which is Low risk. Stress Test Summary STAGE Time (mins) Speed (mph) Grade (%) HR BP SpO2 SYMPTOMS METS Supine 65 148/98 Standing 72 140/95 1 3 1.7 10 134 164/82 4.5 2 6 2.5 12 93 168/98 7 3 9 3.4 14 179 10 1 min recovery 134 164/82 3 min recovery 93 168/98 6 min recovery 92 144/90
== END 2022-09-24 01:15 ==
LOC: DI 00:57
PROVIDERS: PCP Nurse Practitioner Family; Visit Provider Nurse Practitioner Family
DX: R07.9 Chest pain, unspecified (principal)
CPT/HCPCS: 93017

== ENCOUNTER 2022-12-17 01:45 | Outpatient (CLI) | payer MEDICAID, SELFPAY ==
--- NOTE | 2022-12-17 06:45 | DI.RAD_ITS ---
Exam(s) XR THORACIC SPINE COMPLETE EXAM: XR THORACIC SPINE COMPLETE CLINICAL HISTORY: Mid back pain,m54.6. TECHNIQUE: 2D digital imaging was performed. COMPARISON: No exams were available for comparison FINDINGS: 3 views There is mild scoliosis convex left in mid-lower thoracic spine. No evidence of compression fracture. No listhesis. Are no prominent disc space narrowing in the tho racic spinal column. No osseous lesions. Bone density normal. No abnormal widening of the paraspin al lines. No osseous lesions. IMPRESSION: Scoliosis. No other osseous findings. No acute fractures evident. DATA REPOSITORY: RADIATION DOSE DELIVERED:
== END 2022-12-17 02:05 ==
LOC: DI 01:45
PROVIDERS: PCP Nurse Practitioner Family; Visit Provider Physician Assistant Medical
DX: M54.6 Pain in thoracic spine (principal); M41.84 Other forms of scoliosis, thoracic region
CPT/HCPCS: 72072

== ENCOUNTER 2024-04-17 13:08 | Outpatient (CLI) | payer BC, SELFPAY ==
--- NOTE | 2024-04-17 13:30 | DI.RAD_ITS ---
Exam(s) XR LUMBAR SPINE COMPLETE EXAM: XR LUMBAR SPINE COMPLETE CLINICAL HISTORY: Acute low back pain,m54.50. TECHNIQUE: 2D digital imaging was performed. Five views. COMPARISON: No exams were available for comparison FINDINGS: BONES: No fracture or destructive lesion. Vertebral body heights are maintained. No facet hypertro phy identified . Minimal endplate osteophytes. DISKS: Intervertebral disc spaces are maintained. ALIGNMENT: Minimal rightward curvature. Findings could be secondary to to muscle spasm or mild scoli osis. SOFT TISSUE: Normal. IMPRESSION: Minimal degenerative changes. DATA REPOSITORY: RADIATION DOSE DELIVERED:
== END 2024-04-17 13:28 ==
LOC: DI 13:09
PROVIDERS: PCP Nurse Practitioner Adult Health; Visit Provider Family Medicine
DX: M54.50 Low back pain, unspecified (principal)
CPT/HCPCS: 72110

== ENCOUNTER 2024-08-24 01:35 | Outpatient (CLI) | payer OTHER, SELFPAY ==
[2024-08-24 09:20] LABS: Anion Gap 6.7 mmol/L (3-11); BUN 11 mg/dL (7-18); CO2 28.3 mmol/L (21.0-32.0); CREATININE 0.8 mg/dL (0.55-1.02); Calcium 9.1 mg/dL (8.5-10.1); Calculated LDL 124 mg/dL (<100); Chloride 107 mmol/L (98-107); Cholesterol 210 mg/dL (<200); Estimated GFR 88.05 (mL/min/1.73m2); Glucose 89 mg/dL (74-106); HDL Cholesterol 67 mg/dL (>or=50); Potassium 4.5 mmol/L (3.5-5.1); Sodium 142 mmol/L (136-145); Triglyceride 96 mg/dL (<150)
[2024-08-24 19:33] LABS: Hepatitis C Ab w Rflx HCV PCR Negative (Negative)
[2024-08-24 19:38] LABS: HIV-1/2 Ag & Ab Screen Negative (Negative)
== END 2024-08-24 01:36 | disposition home or self-care (01) ==
PROVIDERS: PCP Nurse Practitioner Adult Health; Referring Provider Nurse Practitioner Adult Health; Visit Provider Nurse Practitioner Adult Health
DX: Z13.1 Encounter for screening for diabetes mellitus (principal); Z13.220 Encounter for screening for lipoid disorders; Z11.4 Encounter for screening for human immunodeficiency virus [HIV]; Z11.59 Encounter for screening for other viral diseases
CPT/HCPCS: 36415; 80048; 80061; 86803; 87389

== ENCOUNTER 2024-09-21 00:32 | Outpatient (CLI) | payer OTHER, SELFPAY ==
--- NOTE | 2024-09-21 16:05 | DI.MAMMO_ITS ---
Exam(s) MAMMO SCREENING EXAM: MAMMO SCREENING CLINICAL HISTORY: screening, z12.39. TECHNIQUE: Bilateral full field digital CC and MLO mammographic images were obtained with 3D tomosyn thesis and utilizing computer aided detection (CAD). COMPARISON: Prior 2017 mammogram was reviewed. There are no interval mammograms since 2017. FINDINGS: There are no CAD designations. In the inferomedial aspect of the right breast there are 2 small benign-appearing nodules which were not previously present, both measuring approximately 5 mm size and located approximately 5 and 6 cm i n from the nipple, medially located on the CC view. There are no malignant-appearing microcalcificat ion groups in this region or elsewhere in either breast. In the opposite-left breast on the 3D MLO images there is a similar appearing 5 mm nodule located 5 c m in from the nipple on the MLO view. There is no significant architectural distortion nor skin thickening-retraction. IMPRESSION: Small benign-appearing nodules noted in both breasts, 2 in the right breast and 1 in the left breast. These were not evident on the 2017 study which is most recent mammogram in our PACS. There is a po ssibly that these just represent benign intramammary lymph nodes that were previously hidden bite den se fibroglandular tissue which has decreased in density since 2017 (8 years). Recommend bilateral sp ot compression views including a left breast MLO spot compression view and a right breast cc spot com pression view. Also bilateral breast ultrasound BI-RADS Category 0 - Incomplete: Need additional imaging evaluation Breast Density - Category B - Scattered areas of fibroglandular density Breast density Category C or D implies that the patient has dense breast tissue. Dense breast tissue can make it harder to find cancer on a mammogram. Dense breast tissue is also associated with an incr eased risk of breast cancer. This information about the result of the mammogram report was provided to the patient to raise their awareness. Use this report when you speak with the patient about their risks for breast cancer, which includes their family history. At that time, you may recommend additional screening tests (Ultrasoun d or MRI) as these tests may add significant information. A negative radiographic report should not delay biopsy if a dominant or clinically suspicious mass is present. Up to ten percent of cancers are not identified on mammography. A negative report may reinforce clinical impression. Adenosis and dense breasts may obscure an underlying neoplasm. False positive reports average 6 to 10%. Patient will receive a letter notifying them of these results.
== END 2024-09-21 00:52 ==
LOC: DI 00:32
PROVIDERS: PCP Nurse Practitioner Adult Health; Visit Provider Nurse Practitioner Adult Health
DX: Z12.31 Encounter for screening mammogram for malignant neoplasm of breast (principal); R92.323 Mammographic fibroglandular density, bilateral breasts
CPT/HCPCS: 77063; 77067

== ENCOUNTER 2024-09-28 01:17 | Outpatient (CLI) | payer OTHER, SELFPAY ==
--- NOTE | 2024-09-28 | DI.US_ITS ---
Exam(s) US BREAST RT LIMITED US BREAST LT LIMITED MG MAMMO SCREEN CALL BACK BI EXAM: MG MAMMO SCREEN CALL BACK BI and bilateral breast ultrasound limited CLINICAL HISTORY: F/U ABNL MAMMO, TWO SMALL NODULES RT BREAST, LT BREAST NODULE, R92.8. TECHNIQUE: Craniocaudal and mediolateral oblique Full Field Digital Mammography views of the bilater al breast with Computer Aided Diagnosis followed by Tomosynthesis and limited bilateral breast ultras ound. COMPARISON: Comparison is made with prior examinations. FINDINGS: Mammography/Tomosynthesis: Masses/Architectural Distortion: In the left breast, there is a persistent well-circumscribed nodule in the upper outer quadrant. In the right breast, there again seen 2 well-circumscribed nodules in t he medial aspect on the craniocaudad view. Microcalcifictions: No suspicious pleomorphic-type are seen. Skin Thickening/Nipple Retraction: None. Limited bilateral breast US: Echotexture: Normal appearance of the glandular tissue. Shadowing: No suspicious foci. Cyst: None. Solid lesions: None seen. Ductal dilation: None. IMPRESSION: 1. No definite evidence for malignancy at this time. The well-circumscribed nodules may represent in traparenchymal lymph nodes. 2. Unless there is more urgent need, follow-up screening mammography is recommended, as per [place] [employer] guidelines. 3. The findings were discussed with the patient on the date of the examination. BI-RADS Category 3 - 6 month - Probably Benign Finding: Recommend follow-up imaging in 6 months Breast Density - Category B - Scattered areas of fibroglandular density Breast density Category C or D implies that the patient has dense breast tissue. Dense breast tissue can make it harder to find cancer on a mammogram. Dense breast tissue is also associated with an incr eased risk of breast cancer. This information about the result of the mammogram report was provided to the patient to raise their awareness. Use this report when you speak with the patient about their risks for breast cancer, which includes their family history. At that time, you may recommend additional screening tests (Ultrasoun d or MRI) as these tests may add significant information. A negative radiographic report should not delay biopsy if a dominant or clinically suspicious mass is present. Up to ten percent of cancers are not identified on mammography. A negative report may reinforce clinical impression. Adenosis and dense breasts may obscure an underlying neoplasm. False positive reports average 6 to 10%. Patient will receive a letter notifying them of these results.
== END 2024-09-28 01:37 ==
LOC: DI 01:18
PROVIDERS: PCP Nurse Practitioner Adult Health; Visit Provider Nurse Practitioner Adult Health
DX: Z12.31 Encounter for screening mammogram for malignant neoplasm of breast (principal); R92.8 Other abnormal and inconclusive findings on diagnostic imaging of breast; R92.323 Mammographic fibroglandular density, bilateral breasts
CPT/HCPCS: 76642; 77063; 77067

== ENCOUNTER 2024-11-29 18:01 | Outpatient (REF) | payer OTHER, SELFPAY ==
--- NOTE | 2024-11-29 17:30 | PAPFT_PTH ---
PATIENT: Marc Marcelino LOC: [facility] U#:[id number] AGE/SX: 54/F ROOM: RE11/29/[address]: Eileen Mooney APRN : 1970 BED: DIS: 11/29/2024 SPEC #: [id number] RECD: 11/30/24 12:49 STATUS: MIRELLA REQ #: [id number] CRISSY: 11/29/24 17:[address]: Eileen Mooney DEPT: [facility] Cytology RECD BY: Lacy Viera Tissues: 1 - CX/ENDOCX FOR PAP SMEARS Procedures: PAP THIN PREP/UVM Screening HPV DNA PROBE Comments: [id number] (HPV 16 & 18/45)
== END 2024-11-29 18:02 | disposition home or self-care (01) ==
LOC: LBN 18:01
PROVIDERS: PCP Nurse Practitioner Adult Health; Visit Provider Nurse Practitioner Adult Health
DX: Z12.4 Encounter for screening for malignant neoplasm of cervix (principal); Z11.51 Encounter for screening for human papillomavirus (HPV)
CPT/HCPCS: 88142; 87624